=== PATIENT | male | born 1955 | race Caucasian/White ===

== ENCOUNTER → 2016-06-21 | Outpatient (CLI) | payer BC, OTHER ==
[~2016-06-21] MED LIST: ALBU83IN INH; ANOR1AER IN; ARNU1INH3 IN; CYCL10TA PO; IBUP800T23 PO; OMEP40CA2 PO; PROA1AER IN; SUCR1SS PO; ZOFR20TA PO; [UNRECOGNIZED DRUG - OTHER]
--- NOTE | 2016-06-21 15:41 | REPKIM ---
PROCEDURE: Percutaneous gastrostomy feeding tube removal MEDICAL DIAGNOSIS/INDICATION: Patient with a history of significant weight loss , gastric fullness and anorexia. A percutaneous gastrostomy feeding tube was placed in December 2015. Patient/family reports he can maintain oral nutrition without problems and desires to remove the feeding tube because it is no longer needed. INTERVENTIONALIST: Rc Roberts MD FLUORO TIME: 0.1 minutes EBL: less than 1mL COMPLICATIONS: None PROCEDURE: After the risks, benefits and alternatives of the procedure discussed with the patient and his , informed written consent was obtained. The patient was brought to the interventional suite where a timeout procedure was performed. Fluoroscopy of the abdomen showed the existing gastrostomy tube is intact in a satisfactory course and position. The feeding tube was then unlock and removed in its entirety. A sterile dressing was applied. Dr. Roberts was present. IMPRESSION: Successful gastrostomy tube removal as discussed above. cc: DO CHARLEEN Sue
== END | disposition home or self-care (01) ==
LOC: M IRPRO 12:37
DX: R63.0 Anorexia (principal)